=== PATIENT | male | born 1995 | race Caucasian/White ===

== ENCOUNTER 2016-06-19 08:42 | Emergency (ER) | payer OTHER ==
[2016-06-19 08:54] VITALS: BP 120/71
--- NOTE | 2016-06-19 09:15 | EDM.PDOC ---
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 He thought he was "okay" at first and finish the day but this morning he could barely get out of bed. He seems to be moving fine. He has no radiculopathy complaints, numbness or weakness in his lower extremities and his pain is localized to the lower thoracic and lumbar area. He claims he has had back problems in the past. No bowel or bladder changes. Quality: Reports: Ache, Sharp (With movement) Severity: mild Worsens with: Reports: Movement Associated Symptoms: Reports: Denies symptoms - Related Data Allergies/ADRs: Allergies Allergy/AdvReac Type Severity Reaction Status Date / Time No Known Allergies Allergy Verified 06/19/16 08:56 Home Meds: Home Meds NK [No Known Home Meds] 06/19/16 [History] Past Medical History - Past Health History Medical/Surgical History: Denies Medical/Surgical History Social & Family History - Tobacco Use Smoking Status *Q: Never Smoker Years of Tobacco use: 1 Packs/Tins Daily: 0.1 Second Hand Smoke Exposure: Yes - Caffeine Use Caffeine Use: Reports: Coffee, Energy drinks, Soda - Recreational Drug Use Recreational Drug Use: No ED ROS GENERAL - Review of Systems Review Of Systems: See Below Constitutional: Denies: fever, chills Respiratory: Denies: Shortness of Breath Cardiovascular: Denies: Chest pain GI/Abdominal: Denies: Nausea, Vomiting : Reports: no symptoms Skin: Reports: no symptoms Neurological: Reports: No Symptoms ED EXAM,LOWER BACK PAIN/INJURY - Physical Exam Exam: See Below Exam Limited By: No limitations General Appearance: alert, no apparent distress Respiratory/Chest: no respiratory distress Back Exam: paraspinal tenderness (He does have paraspinal tenderness to the lower thoracic spine and lumbar area, bilaterally. Pain is increased with rotation to the left against resistance. He also has limited forward flexion at 30 when pain is markedly increased). No: CVA tenderness (R), CVA tenderness (L) Neurological: no motor/sensory deficits. No: straight leg raise (L), straight leg raise (R) DTR - Lower Extremities: 2+: knee (R), knee (L) Psychiatric: normal affect, normal mood Skin Exam: Warm, Dry Course - Vital Signs Last Recorded V/S: Last Vital Signs Temp 95.6 F 06/19/16 08:54 Pulse 71 06/19/16 08:54 Resp 14 06/19/16 08:54 BP 120/71 06/19/16 08:54 Pulse Ox 100 06/19/16 08:54 - Re-Assessments/Exams Free Text/Narrative Re-Assessment/Exam: 06/19/16 09:12 This patient has an isolated low back strain without radiculopathy. He was encouraged to stay active but avoid lifting for the next 2 days, continue with anti-inflammatories and given 15 Flexeril to use as needed for muscle relaxation. He should recheck in 3-4 days if not improving satisfactorily but encouraged to resume regular activities as soon as possible. He will return if worsening such as numbness or weakness in an extremity. Departure - Departure Time of Disposition: 09:40 Disposition: Home, Self-Care 01 Condition: good Clinical Impression: Low back strain Qualifiers: Encounter type: initial encounter Qualified Code(s): S39.012A - Strain of muscle, fascia and tendon of lower back, initial encounter Instructions: Back Pain, Adult, [id number] Referrals: PCP,None [Primary Care Provider] - Forms: ED Department Discharge Care Plan Goals: Continue with anti-inflammatories such as ibuprofen or naproxen, gentle stretching and range of motion is important and increase activity as tolerated. Add muscle relaxers up to 3 times daily especially when resting. Recheck in 3 -4 days if not improving satisfactorily, and return sooner if worsening such as numbness or weakness in an extremity. Avoid lifting for 2 days.
== END 2016-06-19 09:40 | disposition home or self-care (01) ==
LOC: JP.ED 08:42
DX: S39.012A Strain of muscle, fascia and tendon of lower back, initial encounter (principal); X50.0XXA Overexertion from strenuous movement or load, initial encounter
CPT/HCPCS: 99283